=== PATIENT | female | born 1940 | race Caucasian/White ===

== ENCOUNTER 2024-04-29 09:23 | Inpatient (IN) | payer BC, MEDICARE ==
[~2024-04-29] VITALS: Ht 167.6 cm; Wt 70.8 kg
[2024-04-29 09:44] VITALS: O2SAT 100
[2024-04-29 10:58] LABS: BASOPHILS % 0.3 % (0.0-2.0); EOSINOPHILS % 0.9 % (0.0-5.0); HEMATOCRIT. 43.2 % (36.0-48.0); LYMPHOCYTES % 19.9 % (20.0-50.0); MEAN CORPUSCULAR HEMOGLOBIN 30.9 pg (28.0-32.0); MEAN CORPUSCULAR HGB CONC 32.5 g/dL (31.0-37.0); MEAN PLATELET VOLUME 7.4 fl (7.4-10.4); MONOCYTES % 6.8 % (2.0-8.0); NEUTROPHILS % 72.1 % (40.0-76.0); PLATELET 247 x1000/uL (130-400); RED BLOOD CELL COUNT 4.54 mill/uL (4.2-5.4); RED CELL DISTRIBUTION WIDTH 13.7 % (11.6-14.6); WHITE BLOOD COUNT 8.4 x1000/uL (4.5-11.0)
[2024-04-29 11:06] LABS: CHLORIDE 100 mEq/L (98-107); POTASSIUM 4.3 mEq/L (3.5-5.1); SODIUM 131 mEq/L (136-145)
[2024-04-29 11:07] LABS: CALCIUM 9.2 mg/dL (8.7-10.4); CARBON DIOXIDE 25 mEq/L (21-32)
[2024-04-29 11:12] LABS: GLUCOSE 109 mg/dL (70-105); UREA NITROGEN BLOOD 11 mg/dL (9-23)
[2024-04-29 11:14] LABS: ALANINE AMINOTRANSFERASE 15 IU/L (10-49); ALBUMIN 4.3 g/dL (3.2-4.8); ASPARTATE AMINOTRANSFERASE 30 IU/L (<34); BILIRUBIN TOTAL 0.6 mg/dL (0.1-1.0)
[2024-04-29] MEDS ORDERED: MORPHINE SULFATE 4 MG/ML INJ (FOR IV/IM USE) IV STA (11:22)
[2024-04-29 11:52] LABS: TROPONIN I HIGH SENSITIVITY 33 ng/L (3.0-34)
[2024-04-29 12:48] LABS: PROTHROMBIN TIME 10.9 sec (9.6-11.0)
[2024-04-29] MEDS: SODIUM CHLORIDE 0.9% 1,000 ML IV ONE (15:30)
[2024-04-29] MEDS: MORPHINE SULFATE 4 MG/ML INJ (FOR IV/IM USE) IV STA (15:39)
[2024-04-29] MEDS: ONDANSETRON HCL 4MG/2ML INJ IV STA (15:49)
[2024-04-29] MEDS: FAMOTIDINE 20MG/2ML VIAL IV ONE (15:49)
[2024-04-29] MEDS: FAMOTIDINE 20MG/2ML VIAL IV SCH (15:49)
[2024-04-29] MEDS: ONDANSETRON HCL 4MG/2ML INJ IV SCH (15:50)
[2024-04-29] MEDS ORDERED: ONDANSETRON HCL 4MG/2ML INJ IV PRN (18:00)
[2024-04-29] MEDS ORDERED: CLONIDINE 0.1MG TABLET PO PRN (18:00)
[2024-04-29] MEDS ORDERED: ACETAMINOPHEN 325MG TABLET PO PRN ×2 (18:00)
[2024-04-29] MEDS ORDERED: MAGNESIUM/ALUMINUM HYDROXIDE/SIMETHICONE 30ML UDC PO PRN (18:00)
[2024-04-29 18:21] LABS: CLARITY URINE CLEAR (CLEAR); COLOR URINE YELLOW (YELLOW); GLUCOSE URINE NEGATIVE (NEGATIVE); KETONES URINE TRACE (NEGATIVE); LEUKOCYTE ESTERASE URINE NEGATIVE (NEGATIVE); NITRITE URINE NEGATIVE (NEGATIVE); OCCULT BLOOD URINE 2+ (NEGATIVE); PROTEIN URINE 2+ (NEGATIVE); SPECIFIC GRAVITY URINE 1.008 (1.005-1.030); UROBILINOGEN URINE 0.2 E.U./dL (0.2-1.0)
[2024-04-29] MEDS ORDERED: IPRATROPIUM/ALBUTEROL 0.5-3(2.5)MG/3ML NEB HHN PRN (18:30)
[2024-04-29 18:39] LABS: WBC URINE 0-2 /hpf (0-2)
[2024-04-29 18:40] LABS: BACTERIA URINE NONE SEEN; SQUAMOUS EPITHELIAL CELL URINE 1+ /lpf (RARE/1+)
[2024-04-29] MEDS: SODIUM CHLORIDE 0.9% 1,000 ML IV SCH (19:08)
[2024-04-29] MEDS: ATORVASTATIN CALCIUM 40MG TABLET PO SCH (21:59)
[2024-04-29 22:32] LABS: PHOSPHORUS 3.4 mg/dL (2.5-4.9)
[2024-04-29 23:00] VITALS: BP 141/42; PULSE 53; RESP 15; TEMP 36.14
[2024-04-29] MEDS: CARVEDILOL 3.125 MG TABLET PO SCH (23:06)
[2024-04-30 03:26] LABS: BASOPHILS % 0.4 % (0.0-2.0); DIFFERENTIAL COMMENT 0; EOSINOPHILS % 1.8 % (0.0-5.0); HEMATOCRIT. 45.7 % (36.0-48.0); HEMOGLOBIN. 14.4 g/dL (12.0-16.0); LYMPHOCYTES % 27.4 % (20.0-50.0); MEAN CORPUSCULAR HEMOGLOBIN 31.5 pg (28.0-32.0); MEAN CORPUSCULAR HGB CONC 31.4 g/dL (31.0-37.0); MEAN CORPUSCULAR VOLUME 100.2 fL (81.0-99.0); MEAN PLATELET VOLUME 7.8 fl (7.4-10.4); MONOCYTES % 13.6 % (2.0-8.0); NEUTROPHILS % 56.8 % (40.0-76.0); PLATELET 190 x1000/uL (130-400); RED BLOOD CELL COUNT 4.56 mill/uL (4.2-5.4); RED CELL DISTRIBUTION WIDTH 14.6 % (11.6-14.6); WHITE BLOOD COUNT 10.4 x1000/uL (4.5-11.0)
[2024-04-30 03:38] LABS: POTASSIUM 3.9 mEq/L (3.5-5.1)
[2024-04-30 03:39] LABS: CALCIUM 8.9 mg/dL (8.7-10.4)
[2024-04-30 03:44] LABS: CREATININE 0.9 mg/dL (0.6-1.0)
[2024-04-30 03:47] LABS: T4 FREE 1.25 ng/dL (0.89-1.76); THYROID STIMULATING HORMONE 0.22 uIU/mL (0.55-4.78)
[2024-04-30 04:00] VITALS: BP 151/64; PULSE 63; RESP 20; TEMP 36.61404; O2SAT 100
[2024-04-30 04:46] LABS: TROPONIN I HIGH SENSITIVITY 30 ng/L (3.0-34)
[2024-04-30] MEDS: LEVOTHYROXINE SODIUM 100MCG TABLET PO SCH (06:34)
[2024-04-30 07:19] LABS: TROPONIN I HIGH SENSITIVITY 32 ng/L (3.0-34)
[2024-04-30 08:00] VITALS: BP 186/59; PULSE 61; RESP 20; TEMP 36.28068; O2SAT 99
[2024-04-30] MEDS ORDERED: PANTOPRAZOLE SODIUM 40 MG/VIAL IV SCH (09:00)
[2024-04-30 09:47] VITALS: PULSE 79
[2024-04-30] MEDS: ISOSORBIDE MONONITRATE 30MG TABLET SR 24HR PO SCH (09:47)
[2024-04-30] MEDS: CLOPIDOGREL 75MG TABLET PO SCH (09:47)
[2024-04-30] MEDS ORDERED: AMLODIPINE 5MG TABLET PO SCH (12:15)
== END 2024-04-30 10:10 | disposition home or self-care (01) | DRG 89 ==
LOC: ER 09:23 → 7EST 13:17 → EDBEDREQ 14:01 → EDBEDREQTM 14:01 → EDBEDREQ 14:02 → 7EST 04-30 03:54
PROVIDERS: ADMIT Internal Medicine; ATTEND Internal Medicine
DX: S06.0X0A Concussion without loss of consciousness, initial encounter (principal); E87.1 Hypo-osmolality and hyponatremia; N39.0 Urinary tract infection, site not specified; E78.5 Hyperlipidemia, unspecified; E11.9 Type 2 diabetes mellitus without complications; E03.9 Hypothyroidism, unspecified; I10 Essential (primary) hypertension; Z66 Do not resuscitate; I25.10 Atherosclerotic heart disease of native coronary artery without angina pectoris; J45.909 Unspecified asthma, uncomplicated; S00.03XA Contusion of scalp, initial encounter; W18.39XA Other fall on same level, initial encounter; R35.0 Frequency of micturition; I25.2 Old myocardial infarction; Z87.891 Personal history of nicotine dependence; Z79.02 Long term (current) use of antithrombotics/antiplatelets; Z79.899 Other long term (current) drug therapy; Z91.041 Radiographic dye allergy status; Y93.89 Activity, other specified; Y92.89 Other specified places as the place of occurrence of the external cause; Y99.8 Other external cause status
CPT/HCPCS: 36415; 74176; 76705; 80048; 80053; 80061; 81003; 83036; 83735; 83880; 83930; 84100; 84439; 84443; 84484; 85025; 93005; 99285; J2270; J2405; J2470; J3490; J7030